=== PATIENT | male | born 1990 | race Caucasian/White ===

== ENCOUNTER 2019-02-05 09:34 | Emergency (ER) | payer OTHER ==
[2019-02-05 09:52] VITALS: BP 146/84; PULSE 86; RESP 18; TEMP 98.4; O2SAT 99
[2019-02-05 09:53] VITALS: BMI 24.7
[2019-02-05] MEDS ORDERED: Tdap Vaccine 0.5 ml Vial (10-64 yrs) IM ONE ×2 (11:03→11:17)
[2019-02-05] MEDS ORDERED: Liquid Adhesive TOP STA (11:04)
--- NOTE | 2019-02-05 11:17 | ED PDOC ---
Upper Extremity Pain/Injury Time Seen by Provider: 02/05/19 10:29 Chief Complaint (Nursing): Upper Extremity Problem/Injury Chief Complaint (Provider): Cut on finger History Per: Patient Additional Complaint(s): Pt states he cut his finger with knife at work [employer]. Unknown tetanus status. Past Medical History Reviewed: Nursing Documentation, Vital Signs Vital Signs: Last Vital Signs Temp 98.4 F 02/05/19 09:52 Pulse 86 02/05/19 09:52 Resp 18 02/05/19 09:52 BP 146/84 02/05/19 09:52 Pulse Ox 99 02/05/19 09:52 - Medical History PMH: No Chronic Diseases Denies: Chronic Kidney Disease - Family History Family History: States: Unknown Family Hx - Social History Current smoker - smoking cessation education provided: No Alcohol: None - Home Medications Home Medications: Ambulatory Orders Medication Instructions Recorded Ibuprofen [Motrin] 600 mg PO Q6H PRN #20 tab 02/05/19 - Allergies Allergies/Adverse Reactions: Allergies Allergy/AdvReac Type Severity Reaction Status Date / Time No Known Allergies Allergy Verified 02/05/19 10:15 Review of Systems Constitutional: Negative for: Fever Skin: Positive for: Other (Laceration) Neurological: Negative for: Weakness, Numbness Physical Exam - Reviewed Nursing Documentation Reviewed: Yes Vital Signs Reviewed: Yes - Physical Exam Appears: Positive for: No Acute Distress Extremity: Positive for: Other (R HAND: 1 cm laceration posteior 2nd digit DIP, FROM @ IP joints, no active bleeding, superficial laceration 3rd digit posterior) - ECG O2 Sat by Pulse Oximetry: 99 Medical Decision Making Medical Decision Makin yo male with finger lacerations. - Dermabond - Adacel - Motrin - finger splint Procedures - Laceration/Wound Repair Dorsal Finger Wound Length (cm): 1 Wound's Depth, Shape: linear Wound Explored: clean Irrigated w/ Saline (ccs): 100 Wound Repaired With: Skin adhesive Wound Complexity: Simple Disposition - Clinical Impression Clinical Impression: Finger laceration - Disposition Disposition: Routine/Home Disposition Time: 11:21 Condition: STABLE Additional Instructions: FOLLOW-UP WITH WORK[employer]ENSATION. Prescriptions: Ibuprofen [Motrin] 600 mg PO Q6H PRN #20 tab PRN Reason: Pain, Moderate (4-7) Instructions: Laceration Repair, Wound Care Forms: [employer] ([employer])
== END 2019-02-05 11:54 | disposition home or self-care (01) ==
LOC: H.ER 09:34
DX: S61.210A Laceration without foreign body of right index finger without damage to nail, initial encounter (principal); W26.0XXA Contact with knife, initial encounter; Y93.9 Activity, unspecified; Y99.0 Civilian activity done for income or pay